=== PATIENT | female | born 1960 | race Asian ===

== ENCOUNTER → 2016-06-10 | Outpatient (CLI) | payer OTHER ==
--- NOTE | 2016-06-11 17:34 | CR ---
EXAM DATE: 06/10/16 PATIENT'S AGE: 56 Patient: REJI INGRAM Facility: [place], [place] Site . Site : 1960 Study: XRay Chest [id number]/9/2017 11:21:55 AM Ordering Physician: Tan Bautista Final Report: INDICATION: Cough. TECHNIQUE: PA and lateral. COMPARISON: None. FINDINGS: Lungs and pleural spaces clear. Heart size and pulmonary vasculature within normal limits. No significant osseous abnormality. IMPRESSION: Negative chest. Dictated by Andrey Morfin MD @ Jun 11 2016 2:33PM (Electronic Signature) Report Signed by Proxy and Original Signed Document filed in the Medical Record. MTDD
== END ==
LOC: MW.CHFP 10:42
PROVIDERS: ATTEND Physician Assistant
DX: J02.9 Acute pharyngitis, unspecified (principal); R05 Cough
CPT/HCPCS: 36415; 71020; 71020-26; 85025; 87081; 87880